=== PATIENT | male | born 1960 | race Caucasian/White ===

== ENCOUNTER 2020-08-26 17:57 | Emergency (ER) | payer MEDICAID ==
[~2020-08-26] VITALS: Ht 165.1 cm; Wt 63.0 kg
[2020-08-26] MEDS ORDERED: TETRACAINE 0.5% OPHTH DROPS 4ML RIGHTEYE ONE (18:45)
[2020-08-26] MEDS ORDERED: FLUORESCEIN SODIUM 1MG/STRIP RIGHTEYE ONE (18:45)
[2020-08-26] MEDS ORDERED: TIMOLOL MALEATE 0.5% OPHTH DROPS 5ML RIGHTEYE SCH (19:45)
[2020-08-26 20:31] LABS: BASOPHILS % 0.6 % (0.0-2.0); EOSINOPHILS % 2.1 % (0.0-5.0); HEMATOCRIT. 45.7 % (42.0-52.0); HEMOGLOBIN. 15.7 g/dL (14.0-18.0); LYMPHOCYTES % 25.3 % (20.0-50.0); MEAN CORPUSCULAR HEMOGLOBIN 30.5 pg (28.0-32.0); MEAN CORPUSCULAR VOLUME 88.7 fL (80.0-94.0); MEAN PLATELET VOLUME 7.6 fl (7.4-10.4); MONOCYTES % 6.5 % (2.0-8.0); NEUTROPHILS % 65.5 % (40.0-76.0); PLATELET 244 x1000/uL (130-400); RED BLOOD CELL COUNT 5.16 mill/uL (4.7-6.1)
[2020-08-26 20:41] LABS: CHLORIDE 106 mEq/L (98-107)
[2020-08-26 20:45] LABS: C REACTIVE PROTEIN QUANT 2.6 mg/L (0.0-3.0)
[2020-08-26] MEDS ORDERED: ACETAZOLAMIDE 500MG ER CAPSULE PO ONE (21:30)
[2020-08-26] MEDS ORDERED: PILOCARPINE HCL 2% OPHTH DROPS 15ML RIGHTEYE SCH (21:30)
[2020-08-26] MEDS ORDERED: BRIMONIDINE 0.2% OPHTH DROPS 5ML RIGHTEYE ONE (21:30)
[2020-08-26 23:05] LABS: CLARITY URINE CLEAR (CLEAR); COLOR URINE YELLOW (YELLOW); KETONES URINE TRACE (NEGATIVE); LEUKOCYTE ESTERASE URINE TRACE (NEGATIVE); NITRITE URINE NEGATIVE (NEGATIVE); OCCULT BLOOD URINE NEGATIVE (NEGATIVE); PROTEIN URINE NEGATIVE (NEGATIVE); SPECIFIC GRAVITY URINE 1.046 (1.005-1.030); UROBILINOGEN URINE 0.2 E.U./dL (0.2-1.0)
[2020-08-27] MEDS ORDERED: MORPHINE SULFATE 4 MG/ML CPJ (NOT FOR IM USE) IV ONE (00:30)
[2020-08-27 03:09] VITALS: BP 137/70
== END 2020-08-27 03:41 | disposition short-term general hospital (02) ==
LOC: ER 17:57
DX: H57.11 Ocular pain, right eye (principal); I49.9 Cardiac arrhythmia, unspecified; Z20.822 Contact with and (suspected) exposure to COVID-19; Z98.890 Other specified postprocedural states
CPT/HCPCS: 36415; 80048; 81003; 85025; 86140; 87426; 93005; 96374; 99285; J2270; Z7610

== ENCOUNTER 2024-03-06 10:35 | Emergency (ER) | payer MEDICAID ==
[~2024-03-06] VITALS: Ht 188 cm; Wt 111.6 kg
[2024-03-06 10:49] VITALS: O2SAT 98
[2024-03-06] MEDS ORDERED: OCUFLX RIGHTEYE (11:00)
[2024-03-06 11:14] VITALS: BP 112/78; PULSE 90; RESP 18; TEMP 98.6
== END 2024-03-06 11:17 | disposition home or self-care (01) ==
LOC: ER 10:44
DX: H10.9 Unspecified conjunctivitis (principal); I10 Essential (primary) hypertension; E78.00 Pure hypercholesterolemia, unspecified; E11.9 Type 2 diabetes mellitus without complications; Z98.890 Other specified postprocedural states
CPT/HCPCS: 99283